=== PATIENT | female | born 1965 | race African-American/Black ===

== ENCOUNTER 2018-03-14 14:29 | Emergency (ER) | payer MEDICAID ==
[~2018-03-14] VITALS: Ht 157.5 cm; Wt 80.7 kg
[2018-03-14 16:19] VITALS: BP 135/86
[2018-03-14] MEDS ORDERED: KETOROLAC TROMETH 60MG/2ML VIAL IM ONE (16:45)
== END 2018-03-14 17:09 | disposition home or self-care (01) ==
LOC: ER 14:29
DX: G44.209 Tension-type headache, unspecified, not intractable (principal); I10 Essential (primary) hypertension; F17.210 Nicotine dependence, cigarettes, uncomplicated
CPT/HCPCS: 70450; 96372; 99284; J1885